=== PATIENT | female | born 1955 | race Hispanic/Latino ===

== ENCOUNTER 2016-09-29 15:48 | Emergency (ER) | payer MEDICAID ==
[2016-09-29 15:58] VITALS: RESP 18; TEMP 97.8; O2SAT 100
--- NOTE | 2016-09-29 16:43 | C.PDOC ---
History Of Present Illness 61 y/o female presents to ED with complaints of right wrist pain and abrasion to left eyebrow obtained after tripping and falling at [facility]. Patient denies LOC, chest pain, palpitations, n/v/d or any other complaints at this time. 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 Time Seen by Provider: 09/29/16 15:57 Chief Complaint (Nursing): Upper Extremity Problem/Injury History Per: Patient History/Exam Limitations: no limitations Onset/Duration Of Symptoms: Hrs Current Symptoms Are (Timing): Still Present Quality: "Pain" Past Medical History Reviewed: Historical Data, Nursing Documentation, Vital Signs Vital Signs: Last Vital Signs Temp 97.8 F 09/29/16 15:53 Pulse 94 H 09/29/16 15:53 Resp 18 09/29/16 15:53 BP 106/63 09/29/16 15:53 Pulse Ox 100 09/29/16 17:32 - Medical History PMH: CVA Family History: States: No Known Family Hx - Social History Hx Alcohol Use: No Hx Substance Use: No - Immunization History Hx Tetanus Toxoid Vaccination: No Hx Influenza Vaccination: No Hx Pneumococcal Vaccination: No Review Of Systems Except As Marked, All Systems Reviewed And Found Negative. Eyes: Negative for: Vision Change Cardiovascular: Negative for: Chest Pain, Palpitations Gastrointestinal: Negative for: Nausea, Vomiting, Diarrhea Skin: Positive for: Bruising (left lower eyelid) Neurological: Positive for: Weakness (right arm) Physical Exam - Physical Exam Appears: Non-toxic, No Acute Distress Skin: Normal Color, Warm, Ecchymosis (left lower eyelid) Head: Atraumatic, Normacephalic Eye(s): bilateral: Normal Inspection, PERRL, EOMI, left: Other (Scratch above left eye and bruising on lower eye lid) Oral Mucosa: Moist Chest: Symmetrical Cardiovascular: Rhythm Regular Respiratory: Normal Breath Sounds Extremity: No Normal ROM (paralysis right arm), Tenderness (Tendernes to distal ulna and radius), Capillary Refill (<2 seconds), No Swelling Extremity: Left: Normal Color And Temperature, Right: Bony Point Tenderness ( wrist ) Pulses: Left Radial: Normal, Right Radial: Normal Neurological/Psych: Oriented x3, No Normal Motor (weakness right arm), Normal Sensation, Normal Reflexes Extremity: Right: No Effort Against [place], Upper: No Effort Against [place] ED Course And Treatment O2 Sat by Pulse Oximetry: 100 (RA) Pulse Ox Interpretation: Normal - Other Rad Right wrist X-Ray: Interpreted by Me Interpretation: No evidence of fracture or dislocation. Osteoporosis Progress Note: Patient given Tdap vaccine. She is placed in a metacarpal splint for comfort. Splint applied by RN and checked by me. Reevaluation Time: 17:39 Reassessment Condition: Improved Disposition Counseled Patient/Family Regarding: Studies Performed, Diagnosis, Need For Followup - Disposition Referrals: [facility] [Outside] Disposition: HOME/ ROUTINE Disposition Time: 17:40 Condition: IMPROVED Additional Instructions: Wear the splint for comfort. Take Tylenol for pain as needed. Continue to apply ice for 2-3 days. Instructions: Wrist Injury (ED), Facial Contusion (ED) - Clinical Impression Clinical Impression: Facial contusion, Right wrist injury - Scribe Statement The provider has reviewed the documentation as recorded by the Mayaibclemencia Vera All medical record entries made by the Scribe were at my direction and personally dictated by me. I have reviewed the chart and agree that the record accurately reflects my personal performance of the history, physical exam, medical decision making, and the department course for this patient. I have also personally directed, reviewed, and agree with the discharge instructions and disposition.
--- NOTE | 2016-09-29 16:53 | RAD ---
PROCEDURE: Right wrist dated 09/29/2016 HISTORY: injury COMPARISON: None. FINDINGS: BONES: The current study reveals a slight cortical irregularity along the radial cortical margin of the navicular with slight notch like appearance within the mid aspect of the navicular. Findings could represent a anatomic variation on. Possibility of an old healed fracture not excluded. No evidence to suggest acute fracture nor dislocation. The remaining osseous structures intact. Mild diffuse osteopenia. JOINTS: Joint spaces are relatively preserved. SOFT TISSUES: No evidence of soft tissue swelling or joint effusion. OTHER FINDINGS: None. IMPRESSION: No evidence to suggest acute fracture as above. There is a slight irregularity of the radial cortical margin margin of the navicular that may represent an anatomic variation however the possibility of old fracture deformity cannot be completely excluded. No evidence of soft tissue swelling or joint effusion
[2016-09-29 18:25] VITALS: BP 112/71; PULSE 90
== END 2016-09-29 18:29 | disposition home or self-care (01) ==
LOC: C.ER 15:48
DX: S00.12XA Contusion of left eyelid and periocular area, initial encounter (principal); S69.91XA Unspecified injury of right wrist, hand and finger(s), initial encounter; W01.0XXA Fall on same level from slipping, tripping and stumbling without subsequent striking against object, initial encounter; Y92.89 Other specified places as the place of occurrence of the external cause